=== PATIENT | female | born 1975 | race Two or more races ===

== ENCOUNTER → 2023-09-20 | Outpatient (CLI) | payer OTHER ==
[2023-09-21 04:06] LABS: MUMPS VIRUS IGG ANTIBODY 89.7 AU/mL (Immune >10.9); RUBELLA AB IGG-REFLAB 4.58 index (Immune >0.99)
[2023-09-21 08:06] LABS: RUBEOLA (MEASLES) IGG <13.5 AU/mL (Immune >16.4); VARICELLA ZOSTER IGG AB TITER 1846 index (Immune >165)
[2023-09-23 18:06] LABS: QUANTIFERON+, Nil Value 0.22 IU/mL; QUANTIFERON+,Mitogen Value 2.28 IU/mL; QUANTIFERON+,TB1 Antigen Value 0.34 IU/mL; QUANTIFERON+,TB2 Antigen Value 0.31 IU/mL; QUANTIFERON, TB GOLD PLUS Negative (Negative)
== END | disposition home or self-care (01) ==
LOC: LABMN 08:22
PROVIDERS: ATTEND Family Medicine
DX: Z11.3 Encounter for screening for infections with a predominantly sexual mode of transmission (principal); Z02.89 Encounter for other administrative examinations; Z20.828 Contact with and (suspected) exposure to other viral communicable diseases; Z20.1 Contact with and (suspected) exposure to tuberculosis
CPT/HCPCS: 86480; 86592; 86706; 86735; 86762; 86765; 86787; 87340; 87491; 87591